=== PATIENT | female | born 1970 | race American Indian/Alaskan Native ===

== ENCOUNTER 2021-03-24 14:37 | Outpatient (CLI) | payer BC ==
[2021-03-24 15:07] LABS: Basophils # (Auto) 0.1 K/mm3 (0.0-0.1); Basophils % (Auto) 0.9 % (0.0-1.8); Eosinophils # (Auto) 0.1 K/mm3 (0.0-0.4); Eosinophils % (Auto) 2.1 % (0.0-4.3); Hematocrit 32.1 % (30.3-42.9); Lymphocytes # (Auto) 2.9 K/mm3 (1.2-5.4); Lymphocytes % (Auto) 44.7 % (13.4-35.0); Mean Corpuscular HGB Conc 34 % (30-34); Mean Corpuscular Volume 89 fl (79-97); Monocytes # (Auto) 0.5 K/mm3 (0.0-0.8); Monocytes % (Auto) 7.9 % (0.0-7.3); Platelet Count 376 K/mm3 (140-440); Red Blood Count 3.59 M/mm3 (3.65-5.03); Red Cell Distribution Width 13.2 % (13.2-15.2)
[2021-03-24 15:31] LABS: % Iron Saturation 24.15 %; Albumin 4.4 g/dL (3.9-5); Calcium 9.6 mg/dL (8.4-10.2); Chol/HDL Ratio 4.44 %
--- NOTE | 2021-03-26 19:28 | Electrocardiograph Report ---
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
[2021-03-30 14:56] LABS: Vitamin D, 25-OH, D2 <4 ng/mL
== END 2021-03-24 14:38 | disposition home or self-care (01) ==
LOC: XRAY 14:37
PROVIDERS: ATTEND Surgery
DX: I49.1 Atrial premature depolarization (principal); E11.9 Type 2 diabetes mellitus without complications; E66.01 Morbid (severe) obesity due to excess calories; K30 Functional dyspepsia; E55.9 Vitamin D deficiency, unspecified; K90.9 Intestinal malabsorption, unspecified
CPT/HCPCS: 36415; 80053; 80061; 82306; 82607; 82728; 83036; 83550; 84443; 85025; 85730; 93005

== ENCOUNTER 2021-04-01 09:50 | Outpatient (CLI) | payer BC ==
--- NOTE | 2021-04-01 12:43 | Fluoroscopy Report ---
Barium swallow Indication: MORBID OBESITY. Preoperative evaluation Technique: Single and double contrast barium technique utilized to evaluate the esophagus. Findings: No mucosal irregularity, mass, mass effect, or critical stenosis. There were no abnormal tertiary c ontractions as seen with dysmotility. There was mild to moderate gastroesophageal reflux. Impression: Mild to moderate reflux. Otherwise unremarkable. Fluoroscopic time: 0.6 minutes Number of fluoroscopic images: 11 Signer Name: Sunil Key MD Signed: 04/01/2021 12:33 PM Workstation Name: [id number]
--- NOTE | 2021-04-01 23:07 | Treadmill Report ---
DATE OF SERVICE: 04/01/2021 NO DICTATION TID: [id number] RECEIPT: [id number] ARCHANA/JODY
--- NOTE | 2021-04-01 23:17 | Treadmill Report ---
DATE OF SERVICE: 04/01/2021 TREADMILL STRESS TEST REFERRING PHYSICIAN: Dr. Caldwell. REASON FOR TREADMILL: The patient is preoperative for bariatric surgery. DESCRIPTION OF PROCEDURE: The patient was brought to the treadmill lab in a postabsorptive state, exercised on a standard Roby protocol treadmill. Resting blood pressure is 127/80. Resting EKG is normal with a heart rate of 70. The patient exercised on a standard Roby protocol treadmill. The patient's target heart rate is 140, the patient achieved within the first 45 seconds, achieved a heart rate of 150, developed significant fatigue. No chest pain, no EKG changes, very poor exercise tolerance, test was stopped at 1 minute and 30 seconds due to fatigue. Again, the patient had no chest pain, no EKG changes, no ST changes, arrhythmias, or chest pain. Abnormal treadmill stress test due to very poor exercise tolerance. Unclear etiology. No ST changes, arrhythmias, or chest pain during stress or recovery. Consider echocardiography and chemical stress test with nuclear perfusion imaging in the preoperative setting. TID: [id number] RECEIPT: [id number] SBM/JODY
--- NOTE | 2021-04-02 08:40 | Treadmill Report ---
[facility] Test Date: 2021-04-01 Test Time: 09:40:41 Pat Name: SIDDHARTHA DE LOS SANTOS Department: Room: Gender: F Administrative Secretary: Iris Red : 1970 Requested By: JEROME PHELPS Order Number: [id number] Reading MD: Remington Frias Interpretive Statements Electronically Signed On 04-02-2021 8:40:03 EDT by Remington Frias
== END 2021-04-01 09:51 | disposition home or self-care (01) ==
LOC: CARD 09:50
PROVIDERS: ATTEND Surgery
DX: Z01.818 Encounter for other preprocedural examination (principal); K21.9 Gastro-esophageal reflux disease without esophagitis; E66.01 Morbid (severe) obesity due to excess calories
CPT/HCPCS: 74220; 93017